=== PATIENT | male | born 1995 | race Hispanic/Latino ===

== ENCOUNTER 2021-05-22 18:42 | Emergency (ER) | payer OTHER ==
[2021-05-22] MEDS ORDERED: 0.9%NACL 1000ML 1,000 ML IV ONE (18:51)
[2021-05-22] MEDS ORDERED: ONDANSETRON 4MG INJ ONE (18:58)
[2021-05-22] MEDS ORDERED: KETOROLAC 30MG VIAL (30MG/ML) ONE (18:58)
[2021-05-22] MEDS ORDERED: ONDANSETRON 4MG INJ IVP ONE (19:00)
[2021-05-22] MEDS ORDERED: KETOROLAC 30MG VIAL (30MG/ML) IVP ONE (19:00)
[2021-05-22 19:10] LABS: BASOPHILS % (AUTO) 0.5 % (0.0-5.0); EOSINOPHILS % (AUTO) 3.5 % (0.0-8.0); HEMATOCRIT 37.9 % (42-54); LYMPHOCYTES % (AUTO) 24.7 % (21.0-51.0); MEAN CORPUSCULAR HEMOGLOBIN 31.8 pg (27.0-33.0); MEAN CORPUSCULAR HGB CONC 34.6 g/dL (32.0-36.0); MONOCYTES % (AUTO) 5.8 % (3.0-13.0); NEUTROPHILS % (AUTO) 65.4 % (40.0-77.0); PLATELET COUNT (AUTO) 114 K/uL (130-400); RED BLOOD CELL COUNT(AUTO) 4.12 MIL/uL (4.50-6.20); RED CELL DISTRIBUTION WIDTH 12.1 % (11.0-15.5); WHITE BLOOD COUNT (AUTO) 10.5 K/uL (4.8-10.8)
[2021-05-22 19:17] LABS: CREATININE 1.2 mg/dL (0.5-1.5); POTASSIUM 3.9 mmol/L (3.5-5.1)
[2021-05-22 19:21] LABS: ALBUMIN 3.8 g/dL (3.5-5.0); BILIRUBIN,TOTAL 0.3 mg/dL (0.2-1.0); TOTAL PROTEIN, SERUM 7.3 g/dL (6.0-8.3)
[2021-05-22] MEDS ORDERED: TAMSULOSIN HCL 0.4 MG CAP.ER.24H PO SCH (20:00)
[2021-05-22] MEDS ORDERED: MORPHINE 4 MG SYG ONE (20:22)
[2021-05-22 20:30] LABS: APPEARANCE,URINE Turbid (CLEAR); BILIRUBIN,URINE Negative (NEGATIVE); COLOR,URINE Red (YELLOW); GLUCOSE, URINE (UA) Negative (NEGATIVE); KETONES,URINE Negative (NEGATIVE); LEUKOCYTE ESTERASE ,URINE Small (NEGATIVE); NITRATE,URINE Negative (NEGATIVE); OCCULT BLOOD,URINE Large (NEGATIVE); PROTEIN,URINE POS 2+ mg/dL (NEGATIVE)
[2021-05-22] MEDS ORDERED: MORPHINE 2 MG SYG IVP ONE (20:30)
[2021-05-22 20:42] LABS: BACTERIA,URINE Few /HPF (None Seen); MUCUS,URINE Few LPF (None Seen); RBC,URINE 26-50 /HPF (0-1); SQUAMOUS EPITHELIAL CELL,UR Rare /HPF (0-2)
[2021-05-22] MEDS ORDERED: CEPH500B PO (20:58)
[2021-05-22] MEDS ORDERED: TAMS-1 PO (20:58)
[2021-05-22] MEDS ORDERED: ONDA4TAB10 PO (20:58)
[2021-05-22] MEDS ORDERED: KETO10 PO (20:58)
[2021-05-22] MEDS ORDERED: CEFTRIAXONE 1G VIAL IVP ONE (21:00)
[2021-05-22] MEDS ORDERED: CEFTRIAXONE 1G VIAL ONE (21:02)
[2021-05-22] MEDS ORDERED: TAMSULOSIN HCL 0.4 MG CAP.ER.24H ONE (21:03)
[2021-05-22 21:10] VITALS: BP 142/72
[2021-05-23] MEDS ORDERED: ACET-2079 PO (18:41)
== END 2021-05-22 21:14 | disposition home or self-care (01) ==
LOC: EDH 18:42
DX: N20.0 Calculus of kidney (principal); Z79.1 Long term (current) use of non-steroidal anti-inflammatories (NSAID); Z79.899 Other long term (current) drug therapy
CPT/HCPCS: 36415; 74176; 80053; 81001; 83605; 83690; 85025; 96374; 96375 ×2; 99284; J0696; J1885; J2270; J2405; J7030

== ENCOUNTER 2021-05-23 16:07 | Emergency (ER) | payer OTHER ==
[~2021-05-23] VITALS: Ht 167.6 cm; Wt 59.0 kg
[~2021-05-23 16:07] MED LIST: CEPH500B PO; KETO10 PO; ONDA4TAB10 PO; TAMS-1 PO
[2021-05-23 16:12] VITALS: BP 116/71
[2021-05-23] MEDS ORDERED: MORPHINE 4 MG SYG ONE (16:43)
[2021-05-23] MEDS ORDERED: ONDANSETRON 4MG INJ ONE (16:43)
[2021-05-23] MEDS ORDERED: KETOROLAC 30MG VIAL (30MG/ML) ONE (16:43)
[2021-05-23] MEDS ORDERED: ONDANSETRON 4MG INJ IVP ONE (17:00)
[2021-05-23] MEDS ORDERED: MORPHINE 4 MG SYG IVP ONE (17:00)
[2021-05-23] MEDS ORDERED: KETOROLAC 30MG VIAL (30MG/ML) IVP ONE (17:00)
[2021-05-23] MEDS ORDERED: 0.9%NACL 1000ML 1,000 ML IV ONE (17:00)
[2021-05-23 17:31] LABS: BASOPHILS % (AUTO) 0.2 % (0.0-5.0); HEMATOCRIT 36.1 % (42-54); LYMPHOCYTES % (AUTO) 18.1 % (21.0-51.0); MEAN CORPUSCULAR HEMOGLOBIN 31.8 pg (27.0-33.0); MEAN CORPUSCULAR HGB CONC 34.9 g/dL (32.0-36.0); MEAN CORPUSCULAR VOLUME 91.2 fL (79-99); MONOCYTES % (AUTO) 6.3 % (3.0-13.0); NEUTROPHILS % (AUTO) 73.2 % (40.0-77.0); PLATELET COUNT (AUTO) 105 K/uL (130-400); RED BLOOD CELL COUNT(AUTO) 3.96 MIL/uL (4.50-6.20); RED CELL DISTRIBUTION WIDTH 12.2 % (11.0-15.5)
[2021-05-23 17:39] LABS: CREATININE 1.3 mg/dL (0.5-1.5); POTASSIUM 3.2 mmol/L (3.5-5.1)
[2021-05-23 17:43] LABS: ALBUMIN 3.6 g/dL (3.5-5.0); BILIRUBIN,TOTAL 0.3 mg/dL (0.2-1.0); TOTAL PROTEIN, SERUM 6.6 g/dL (6.0-8.3)
[2021-05-23 18:01] LABS: APPEARANCE,URINE Clear (CLEAR); BILIRUBIN,URINE Negative (NEGATIVE); COLOR,URINE Yellow (YELLOW); GLUCOSE, URINE (UA) Negative (NEGATIVE); KETONES,URINE Trace mg/dL (NEGATIVE); LEUKOCYTE ESTERASE ,URINE Negative (NEGATIVE); NITRATE,URINE Negative (NEGATIVE); OCCULT BLOOD,URINE Large (NEGATIVE); PROTEIN,URINE POS 1+ mg/dL (NEGATIVE)
[2021-05-23 18:06] LABS: AMPHET/METH SCREEN,URINE NEGATIVE (NEGATIVE); BARBITURATE SCREEN, URINE NEGATIVE (NEGATIVE); BENZODIAZEPINES SCREEN,URINE NEGATIVE (NEGATIVE); CANNABINOID SCREEN,URINE POSITIVE (NEGATIVE); COCAINE SCREEN,URINE NEGATIVE (NEGATIVE); OPIATE SCREEN,URINE POSITIVE (NEGATIVE); PHENCYCLIDINE SCREEN,URINE NEGATIVE (NEGATIVE)
[2021-05-23] MEDS ORDERED: LORAZEPAM 2 MG/ML 1 ML VIAL ONE (18:22)
[2021-05-23] MEDS ORDERED: LORAZEPAM 2 MG/ML 1 ML VIAL IVP ONE (18:30)
[2021-05-23 18:34] LABS: BACTERIA,URINE Rare /HPF (None Seen); MUCUS,URINE Few LPF (None Seen); SQUAMOUS EPITHELIAL CELL,UR Rare /HPF (0-2)
[2021-05-23] MEDS ORDERED: ACET-2079 PO (18:41)
== END 2021-05-23 18:55 | disposition home or self-care (01) ==
LOC: EDH 16:07
DX: N20.1 Calculus of ureter (principal); Z79.1 Long term (current) use of non-steroidal anti-inflammatories (NSAID); Z79.899 Other long term (current) drug therapy; Z90.49 Acquired absence of other specified parts of digestive tract
CPT/HCPCS: 36415; 74176; 80053; 80305; 81001; 83690; 85025; 96361; 96374; 96375; 99284; J1885; J2060; J2270; J2405